=== PATIENT | female | born 1945 | race Caucasian/White ===

== ENCOUNTER → 2018-06-03 | Outpatient (CLI) | payer MEDICARE, OTHER ==
[~2018-06-03] MED LIST: ASPIRIN PO; CALCIUM 600 +1 EAC8 PO; ENOXAPARIN40 MG/0.1 INJECTION; FISH OIL 1,2001 EAC3 PO; FOSAMAX 70 MG T70 M1 PO; MOBIC15 MG PO; OXYCODON-ACETA1 EAC1 PO; VITAMIN D32000 UNI1 PO
== END ==
LOC: M.RAD 07:00
DX: Z12.31 Encounter for screening mammogram for malignant neoplasm of breast (principal)

== ENCOUNTER → 2019-06-03 | Outpatient (CLI) | payer MEDICARE, OTHER | LOC: M.RAD 07:12 | DX: Z12.31 Encounter for screening mammogram for malignant neoplasm of breast (principal) ==

== ENCOUNTER → 2020-08-02 | Outpatient (CLI) | payer MEDICARE, OTHER | LOC: M.RAD 07:56 | PROVIDERS: ATTEND Obstetrics & Gynecology Gynecology | DX: Z12.31 Encounter for screening mammogram for malignant neoplasm of breast (principal) ==